=== PATIENT | female | born 1980 | race African-American/Black ===

== ENCOUNTER 2018-07-22 13:03 | Emergency (ER) | payer MEDICAID, OTHER ==
[~2018-07-22] VITALS: Ht 165.1 cm; Wt 90.0 kg
[2018-07-22 13:08] VITALS: BP 138/89
== END 2018-07-22 14:09 | disposition left against medical advice (07) ==
LOC: ER 13:03
DX: Z53.21 Procedure and treatment not carried out due to patient leaving prior to being seen by health care provider (principal)

== ENCOUNTER 2018-10-03 19:25 | Emergency (ER) | payer OTHER ==
[~2018-10-03] VITALS: Ht 165.1 cm; Wt 81.6 kg
[2018-10-03 20:33] VITALS: BP 130/84
== END 2018-10-03 22:00 | disposition left against medical advice (07) ==
LOC: ER 19:25
DX: Z53.21 Procedure and treatment not carried out due to patient leaving prior to being seen by health care provider (principal); F23 Brief psychotic disorder; F41.9 Anxiety disorder, unspecified; F17.200 Nicotine dependence, unspecified, uncomplicated

== ENCOUNTER 2018-10-10 01:21 | Emergency (ER) | payer OTHER ==
[~2018-10-10] VITALS: Ht 167.6 cm; Wt 68.0 kg
[2018-10-10 01:25] VITALS: BP 139/91
== END 2018-10-10 01:54 | disposition left against medical advice (07) ==
LOC: ER 01:21
DX: Z53.21 Procedure and treatment not carried out due to patient leaving prior to being seen by health care provider (principal)

== ENCOUNTER 2018-10-26 23:53 | Emergency (ER) | payer OTHER ==
[~2018-10-26] VITALS: Ht 160 cm; Wt 80.0 kg
[2018-10-27 01:57] VITALS: BP 125/86
== END 2018-10-27 03:27 | disposition left against medical advice (07) ==
LOC: ER 23:53
DX: M25.561 Pain in right knee (principal); M25.511 Pain in right shoulder; Z53.21 Procedure and treatment not carried out due to patient leaving prior to being seen by health care provider

== ENCOUNTER 2018-11-24 23:40 | Emergency (ER) | payer OTHER ==
[~2018-11-24] VITALS: Ht 170.2 cm; Wt 73.0 kg
[2018-11-24 23:46] VITALS: BP 132/78
== END 2018-11-25 04:00 | disposition left against medical advice (07) ==
LOC: ER 23:40
DX: Z53.21 Procedure and treatment not carried out due to patient leaving prior to being seen by health care provider (principal)

== ENCOUNTER 2018-12-05 20:10 | Emergency (ER) | payer OTHER ==
[~2018-12-05] VITALS: Ht 160 cm; Wt 79.0 kg
[2018-12-06 00:32] LABS: BASOPHILS % 0.4 % (0.0-2.0); EOSINOPHILS % 2.9 % (0.0-5.0); HEMATOCRIT. 36.9 % (36.0-48.0); HEMOGLOBIN. 12.5 g/dL (12.0-16.0); LYMPHOCYTES % 35.9 % (20.0-50.0); MEAN CORPUSCULAR HEMOGLOBIN 30.2 pg (28.0-32.0); MEAN CORPUSCULAR VOLUME 89.2 fL (81.0-99.0); MEAN PLATELET VOLUME 8.8 fl (7.4-10.4); NEUTROPHILS % 53.8 % (40.0-76.0); PLATELET 258 x1000/uL (130-400); RED BLOOD CELL COUNT 4.14 mill/uL (4.2-5.4); RED CELL DISTRIBUTION WIDTH 13.9 % (11.6-14.6)
[2018-12-06 00:36] LABS: CHLORIDE 110 mEq/L (98-107)
[2018-12-06 00:37] LABS: HCG SCREEN NEGATIVE
[2018-12-06 08:30] VITALS: BP 110/70
== END 2018-12-06 10:41 | disposition home or self-care (01) ==
LOC: ER 20:10
DX: R53.1 Weakness (principal); F41.9 Anxiety disorder, unspecified; F17.210 Nicotine dependence, cigarettes, uncomplicated; Z98.890 Other specified postprocedural states; Z59.0 Homelessness; Z71.89 Other specified counseling
CPT/HCPCS: 36415; 71045; 80053; 84703; 85025; 99284; 99406; Z7610

== ENCOUNTER 2021-03-02 04:28 | Emergency (ER) | payer OTHER ==
[~2021-03-02] VITALS: Ht 167.6 cm; Wt 68.0 kg
[~2021-03-02 04:28] MED LIST: ALBU90AE INH; P50 MT
[2021-03-02] MEDS ORDERED: IPRATROPIUM BROMIDE (0.02%) 0.5MG/2.5ML NEB HHN STA (04:53)
[2021-03-02] MEDS ORDERED: ALBUTEROL (0.083%) 2.5MG/3ML NEB HHN STA ×2 (04:53→08:02)
[2021-03-02] MEDS ORDERED: PREDNISONE 20MG TABLET PO ONE (05:00)
[2021-03-02 10:10] VITALS: BP 135/85
== END 2021-03-02 10:11 | disposition home or self-care (01) ==
LOC: ER 04:28
DX: J45.901 Unspecified asthma with (acute) exacerbation (principal); F41.9 Anxiety disorder, unspecified; Z98.890 Other specified postprocedural states
CPT/HCPCS: 71045; 94640; 99284; J7512; Z7610

== ENCOUNTER 2021-04-15 22:22 | Emergency (ER) | payer OTHER ==
[~2021-04-15] VITALS: Ht 167.6 cm; Wt 64.0 kg
[2021-04-15] MEDS ORDERED: IPRATROPIUM BROMIDE (0.02%) 0.5MG/2.5ML NEB HHN STA (22:37)
[2021-04-15] MEDS ORDERED: PREDNISONE 20MG TABLET PO STA (22:37)
[2021-04-15] MEDS ORDERED: ALBUTEROL (0.083%) 2.5MG/3ML NEB HHN STA (22:37)
[2021-04-15 23:05] LABS: BASOPHILS % 0.7 % (0.0-2.0); HEMATOCRIT. 37.1 % (36.0-48.0); HEMOGLOBIN. 12.9 g/dL (12.0-16.0); LYMPHOCYTES % 27.1 % (20.0-50.0); MEAN CORPUSCULAR HEMOGLOBIN 31.1 pg (28.0-32.0); MEAN CORPUSCULAR VOLUME 89.3 fL (81.0-99.0); MEAN PLATELET VOLUME 9.2 fl (7.4-10.4); MONOCYTES % 5.6 % (2.0-8.0); NEUTROPHILS % 58.6 % (40.0-76.0); PLATELET 287 x1000/uL (130-400); RED BLOOD CELL COUNT 4.15 mill/uL (4.2-5.4); RED CELL DISTRIBUTION WIDTH 13.2 % (11.6-14.6)
[2021-04-15 23:11] LABS: CHLORIDE 111 mEq/L (98-107)
[2021-04-15] MEDS ORDERED: SODIUM CHLORIDE 0.9% 1,000 ML IV ONE (23:45)
[2021-04-16] MEDS ORDERED: P50 MT (01:14)
[2021-04-16] MEDS ORDERED: ALBU18HF2 IH (01:14)
[2021-04-16] MEDS ORDERED: AZIT250T12 MT (01:15)
[2021-04-16 01:30] VITALS: BP 142/90
== END 2021-04-16 01:52 | disposition home or self-care (01) ==
LOC: ER 22:22
DX: J45.901 Unspecified asthma with (acute) exacerbation (principal)
CPT/HCPCS: 36415; 71045; 80053; 83605; 83880; 84484; 85025; 87040; 93005; 94640; 99285; J7030; J7512; Z7610

== ENCOUNTER 2021-08-29 18:24 | Emergency (ER) | payer OTHER ==
[~2021-08-29] VITALS: Ht 154.9 cm; Wt 69.0 kg
[~2021-08-29 18:24] MED LIST changes: +ALBU18HF2 IH; +AZIT250T12 MT
[2021-08-29] MEDS ORDERED: METHYLPREDNISOLONE SOD SUCC 125 MG/2 ML VIAL IV ONE (18:45)
[2021-08-29 19:29] LABS: BASOPHILS % 0.3 % (0.0-2.0); EOSINOPHILS % 2.6 % (0.0-5.0); HEMATOCRIT. 39.5 % (36.0-48.0); HEMOGLOBIN. 13.1 g/dL (12.0-16.0); LYMPHOCYTES % 27.2 % (20.0-50.0); MEAN CORPUSCULAR HEMOGLOBIN 29.4 pg (28.0-32.0); MEAN CORPUSCULAR VOLUME 88.8 fL (81.0-99.0); MEAN PLATELET VOLUME 8.8 fl (7.4-10.4); MONOCYTES % 4.6 % (2.0-8.0); NEUTROPHILS % 65.3 % (40.0-76.0); PLATELET 343 x1000/uL (130-400); RED BLOOD CELL COUNT 4.45 mill/uL (4.2-5.4); RED CELL DISTRIBUTION WIDTH 13.3 % (11.6-14.6)
[2021-08-29 19:39] LABS: CHLORIDE 107 mEq/L (98-107)
[2021-08-29 19:43] LABS: ETHANOL BLOOD < 10 mg/dL
[2021-08-29 19:44] LABS: C REACTIVE PROTEIN QUANT 1.8 mg/L (0.0-3.0); HCG SCREEN NEGATIVE
[2021-08-29] MEDS ORDERED: ALBUTEROL 6.7GM HFA INHALER ORI ONE (21:45)
[2021-08-29 22:38] LABS: CLARITY URINE CLEAR (CLEAR); COLOR URINE YELLOW (YELLOW); KETONES URINE NEGATIVE (NEGATIVE); LEUKOCYTE ESTERASE URINE 1+ (NEGATIVE); NITRITE URINE NEGATIVE (NEGATIVE); OCCULT BLOOD URINE 3+ (NEGATIVE); PROTEIN URINE 2+ (NEGATIVE); SPECIFIC GRAVITY URINE 1.019 (1.005-1.030); UROBILINOGEN URINE 0.2 E.U./dL (0.2-1.0)
[2021-08-29] MEDS ORDERED: POTASSIUM CHLORIDE 20MEQ TABLET SR PO SCH (22:45)
[2021-08-29 23:02] LABS: *BARBITURATES SCREEN URINE NEGATIVE (NEGATIVE); *BENZODIAZEPINES SCREEN URINE NEGATIVE (NEGATIVE)
[2021-08-29 23:03] LABS: *COCAINE SCREEN URINE NEGATIVE (NEGATIVE); METHADONE URINE SCREEN NEGATIVE (NEGATIVE); OPIATES URINE SCREEN NEGATIVE (NEGATIVE)
[2021-08-29 23:04] LABS: CANNABINOID URINE SCREEN NEGATIVE (NEGATIVE); PHENCYCLIDINE URINE SCREEN NEGATIVE (NEGATIVE)
[2021-08-29 23:07] LABS: *AMPHETAMINES SCREEN URINE PRESUMTIVE POSITIVE (NEGATIVE)
[2021-08-29 23:55] VITALS: BP 129/73
== END 2021-08-30 00:10 | disposition left against medical advice (07) ==
LOC: ER 18:24
DX: J44.1 Chronic obstructive pulmonary disease with (acute) exacerbation (principal); R00.0 Tachycardia, unspecified; F15.10 Other stimulant abuse, uncomplicated; F17.290 Nicotine dependence, other tobacco product, uncomplicated; Z79.899 Other long term (current) drug therapy
CPT/HCPCS: 36415; 71045; 80053; 80305; 80320; 81003; 83605; 83880; 84145; 84484; 84703; 85025; 86140; 87040; 87086; 93005; 96374; 99285; J2930; G0480

== ENCOUNTER 2023-02-19 03:16 | Emergency (ER) | payer OTHER ==
[~2023-02-19] VITALS: Ht 167.6 cm; Wt 64.0 kg
[2023-02-19 03:22] VITALS: BP 125/88; PULSE 100; RESP 18; TEMP 97.1; O2SAT 98
== END 2023-02-19 04:15 | disposition left against medical advice (07) ==
LOC: ER 03:16
DX: Z53.21 Procedure and treatment not carried out due to patient leaving prior to being seen by health care provider (principal)
CPT/HCPCS: 99281

== ENCOUNTER 2023-05-30 01:44 | Emergency (ER) | payer OTHER ==
[~2023-05-30] VITALS: Ht 172.7 cm; Wt 71.0 kg
[2023-05-30 01:58] VITALS: O2SAT 98
[2023-05-30] MEDS ORDERED: NAPR-681 MT (02:14)
[2023-05-30] MEDS ORDERED: AMOX1TAB16 MT (02:14)
[2023-05-30 02:15] VITALS: BP 144/93
[2023-05-30] MEDS ORDERED: ACETAMINOPHEN 325MG TABLET PO ONE (02:15)
[2023-05-30] MEDS ORDERED: KETOROLAC 30MG/ML VIAL IM ONE (02:15)
[2023-05-30 02:26] VITALS: PULSE 104; RESP 18; TEMP 98.4
== END 2023-05-30 02:29 | disposition home or self-care (01) ==
LOC: ER 02:10
DX: K04.7 Periapical abscess without sinus (principal); R68.84 Jaw pain; J45.909 Unspecified asthma, uncomplicated; F15.90 Other stimulant use, unspecified, uncomplicated
CPT/HCPCS: 99283; 81025; J1885

== ENCOUNTER 2023-08-03 07:10 | Emergency (ER) | payer MEDICAID, OTHER ==
[~2023-08-03] VITALS: Ht 157.5 cm; Wt 67.0 kg
[~2023-08-03 07:10] MED LIST changes: +AMOX1TAB16 MT; +NAPR-681 MT
[2023-08-03 07:18] VITALS: BP 117/44; TEMP 98.2
[2023-08-03] MEDS ORDERED: IPRATROPIUM/ALBUTEROL 0.5-3(2.5)MG/3ML NEB HHN ONE (08:00)
[2023-08-03] MEDS ORDERED: PREDNISONE 20MG TABLET PO ONE (08:00)
[2023-08-03 08:25] VITALS: PULSE 84; RESP 20; O2SAT 94
[2023-08-03] MEDS ORDERED: ALBU2.5V13 NEB (09:09)
[2023-08-03] MEDS ORDERED: ALBU6.7H15 INH (09:09)
[2023-08-03] MEDS ORDERED: P50 MT (09:09)
== END 2023-08-03 09:15 | disposition home or self-care (01) ==
LOC: ER 08:09
DX: J45.901 Unspecified asthma with (acute) exacerbation (principal); F12.10 Cannabis abuse, uncomplicated; Z98.890 Other specified postprocedural states
CPT/HCPCS: 94640; 99283; J7512; Z7610 ×4; C1893

== ENCOUNTER 2023-11-09 00:23 | Emergency (ER) | payer MEDICAID, OTHER ==
[~2023-11-09] VITALS: Ht 162.6 cm; Wt 65.0 kg
[~2023-11-09 00:23] MED LIST changes: +ALBU2.5V13 NEB; +ALBU6.7H15 INH
[2023-11-09 00:25] VITALS: BP 144/80; PULSE 110; RESP 18; TEMP 98.2; O2SAT 98
[2023-11-09] MEDS ORDERED: ACETAMINOPHEN 325MG TABLET PO ONE (00:30)
[2023-11-09] MEDS ORDERED: METOCLOPRAMIDE HCL 10MG TABLET PO ONE (00:30)
== END 2023-11-09 01:06 | disposition left against medical advice (07) ==
LOC: ER 00:23
DX: R51.9 Headache, unspecified (principal); F15.10 Other stimulant abuse, uncomplicated; J45.909 Unspecified asthma, uncomplicated; Z00.00 Encounter for general adult medical examination without abnormal findings; Z53.21 Procedure and treatment not carried out due to patient leaving prior to being seen by health care provider; Z98.890 Other specified postprocedural states; Z79.899 Other long term (current) drug therapy
CPT/HCPCS: 99283